=== PATIENT | female | born 1975 | race Caucasian/White ===

== ENCOUNTER 2016-11-10 11:19 | Inpatient (IN) | payer SELFPAY ==
[~2016-11-10] VITALS: Ht 157.5 cm; Wt 61.7 kg
[2016-11-10 11:23] VITALS: BP 101/58; PULSE 96; RESP 15; TEMP 98.2; O2SAT 98
--- NOTE | 2016-11-10 11:41 | PD ---
Physical Exam Time Seen by Provider: 11:38 Narrative 41 y/o female female here for evaluation of an area of redness that has been progressing for 3 weeks on the R buttocks. She says that she received a IM phenergan/lidocaine injection in her R buttocks and the redness in the area has progressed since then. She also c/o L hand redness/pain for 2 days, she believes that maybe a spider bit her. She reports a temperature of 103 last night. Vital signs reviewed. Seen at triage desk. Awaiting bed placement. Data Data Last Documented VS Vital Signs Date Time Temp Pulse Resp B/P Pulse Ox O2 Delivery O2 Flow Rate FiO2 11/10/16 11:23 98.2 96 15 101/58 98 MDM Medical Record Reviewed: Yes Supervised Visit with LONI: Wilfrido Ho Nov 10, 2016 11:41
[2016-11-10 12:00] VITALS: PULSE 74; PULSE 78; RESP 15; TEMP 98.2; TEMP 98.7; O2SAT 100; O2SAT 99
[2016-11-10] MEDS ORDERED: LIDOCAINE HCL 1% 30 ML VIAL INFIL ONE (12:00)
[2016-11-10] MEDS ORDERED: VANCOMYCIN INJ 1,000 MG in SODIUM CHLOR 0.9% 250 ML INJ 250 ML IV ONE (12:00)
[2016-11-10] MEDS ORDERED: SODIUM CHLOR 0.9% 1000 ML INJ 1,000 ML IV ONE (12:15)
--- NOTE | 2016-11-10 12:31 | RADRPT ---
EXAM DATE/TIME: 11/10/2016 12:13 [place] COMPARISON: No previous studies available for comparison. INDICATIONS : Left hand pain and swelling, no injury. MEDICAL HISTORY : None. SURGICAL HISTORY : None. ENCOUNTER: Initial ACUITY: 1 week PAIN SCORE: 5/10 LOCATION: Left entire hand FINDINGS: Three view examination of the left hand demonstrates no dislocation, or fracture. Minimal soft tiss ue swelling is evident. The carpal bones appear intact. The interphalangeal and metacarpophalangeal joints are intact. Bony mineralization is normal. CONCLUSION: Soft tissue swelling, negative for fracture. Rustma Ballard MD FACR on November 10, 2016 at 12:20 Board Certified Radiologist. This report was verified electronically.
[2016-11-10 12:33] LABS: AUTOMATED NEUTROPHIL # 11.7 TH/MM3 (1.8-7.7); BASOPHIL # 0.2 TH/MM3 (0-0.2); BASOPHIL % 0.9 % (0.0-2.0); EOSINOPHIL # 0.7 TH/MM3 (0-0.4); HEMATOCRIT 37.6 % (35.0-46.0); HEMO FLAGS DIFF FINAL; LYMPH % 21.1 % (9.0-44.0); LYMPHOCYTE # 3.7 TH/MM3 (1.0-4.8); MEAN CELL VOLUME 92.9 FL (80.0-100.0); MEAN CORPUSCULAR HEMOGLOBIN 30.2 PG (27.0-34.0); MEAN CORPUSCULAR HGB CONC 32.5 % (32.0-36.0); MONO % 7.7 % (0.0-8.0); NEUT % 66.3 % (16.0-70.0); PLATELET COUNT 370 TH/MM3 (150-450); RED BLOOD COUNT 4.04 MIL/MM3 (4.00-5.30); RED CELL DISTRIBUTION WIDTH 13.6 % (11.6-17.2); WHITE BLOOD COUNT 17.6 TH/MM3 (4.0-11.0)
--- NOTE | 2016-11-10 12:37 | PD ---
HPI Chief Complaint: Skin Problem Time Seen by Provider: 11:47 Travel History International Travel<30 days: No Contact w/Intl Traveler<30days: No Traveled to known affect area: No History of Present Illness HPI 41-year-old female came to the emergency room with history of right buttock abscess that as per the patient has been going on for past 3 weeks and left hand abscess that she noticed since yesterday. She is an IV drug abuser and says that she last shot IV oxycodone was a month ago. She says that another physician had given a shot of lidocaine and Phenergan and to her right buttock and since then she has had this swelling and pain which is progressively worsening. She appeared to be in significant distress and very anxious. Her significant other is here with her as well. Patient was afebrile in the triage. [facility] Past Medical History Narrative Medical List of her past medical, surgical, social and family history was reviewed from the nursing note. Social History Tobacco Use: Yes Allergies-Medications (Allergen,Severity, Reaction): Coded Allergies: Toradol (Verified Allergy, Unknown, 11/10/16) Comments List of her allergies reviewed from the nursing note. Reported Meds & Prescriptions Reported Meds & Active Scripts Active Narrative Medication Awaiting for the nurse to do the medical reconciliation. Review of Systems Except as stated in HPI: all other systems reviewed are Neg Physical Exam Narrative GENERAL: Awake, alert, anxious, significant distress SKIN: Focused skin assessment warm/dry. Right buttock has a significant induration measuring about 5 x 7 cm with a central fluctuance of 3 x 3 cm. The left hand at the fourth MCP joint has a tender fluctuant swelling with the ring finger swollen and decreased range of motion. The palmar surface of both the hands have peeling dermis. HEAD: Atraumatic. Normocephalic. EYES: Pupils equal and round. No scleral icterus. No injection or drainage. ENT: No nasal bleeding or discharge. Mucous membranes pink and moist. NECK: Trachea midline. No JVD. CARDIOVASCULAR: Regular rate and rhythm. No murmur appreciated. RESPIRATORY: No accessory muscle use. Clear to auscultation. Breath sounds equal bilaterally. GASTROINTESTINAL: Abdomen soft, non-tender, nondistended. Hepatic and splenic margins not palpable. MUSCULOSKELETAL: No obvious deformities. No clubbing. No cyanosis. No edema. NEUROLOGICAL: Awake and alert. No obvious cranial nerve deficits. Motor grossly within normal limits. Normal speech. PSYCHIATRIC: Appropriate mood and affect; insight and judgment normal. Data Data Last Documented VS Vital Signs Date Time Temp Pulse Resp B/P Pulse Ox O2 Delivery O2 Flow Rate FiO2 11/10/16 12:00 98.7 78 15 100 Room Air 11/10/16 11:23 101/58 Orders Complete Blood Count With Diff (11/10/16 11:47) Comprehensive Metabolic Panel (11/10/16 11:47) Lactic Acid Sepsis Protocol (11/10/16 11:47) Urinalysis - C+S If Indicated (11/10/16 11:47) Blood Culture (11/10/16 11:47) Wound Culture And Gram Stain (11/10/16 11:47) Blood Glucose (11/10/16 11:47) Ecg Monitoring (11/10/16 11:47) Iv Access Insert/Monitor (11/10/16 11:47) Oximetry (11/10/16 11:47) Oxygen Administration (11/10/16 11:47) Hand, Complete (Byo0obn) (11/10/16 ) Vancomycin Inj (Vancomycin Inj) (11/10/16 12:00) Lidocaine 1% Inj (Xylocaine 1% Inj) (11/10/16 12:00) Sodium Chlor 0.9% 1000 Ml Inj (Ns 1000 M (11/10/16 12:15) Potassium Chloride Eff (K-Lyte Cl Eff) (11/10/16 12:45) Morphine Inj (Morphine Inj) (11/10/16 13:14) Urine Culture (11/10/16 12:10) Morphine Inj (Morphine Inj) (11/10/16 14:00) Admit Order (Ed Use Only) (11/10/16 14:58) Labs Laboratory Tests Test 11/10/16 11/10/16 11:55 12:10 White Blood Count 17.6 TH/MM3 Red Blood Count 4.04 MIL/MM3 Hemoglobin 12.2 GM/DL Hematocrit 37.6 % Mean Corpuscular Volume 92.9 FL Mean Corpuscular Hemoglobin 30.2 PG Mean Corpuscular Hemoglobin 32.5 % Concent Red Cell Distribution Width 13.6 % Platelet Count 370 TH/MM3 Mean Platelet Volume 9.2 FL Neutrophils (%) (Auto) 66.3 % Lymphocytes (%) (Auto) 21.1 % Monocytes (%) (Auto) 7.7 % Eosinophils (%) (Auto) 4.0 % Basophils (%) (Auto) 0.9 % Neutrophils # (Auto) 11.7 TH/MM3 Lymphocytes # (Auto) 3.7 TH/MM3 Monocytes # (Auto) 1.4 TH/MM3 Eosinophils # (Auto) 0.7 TH/MM3 Basophils # (Auto) 0.2 TH/MM3 CBC Comment DIFF FINAL Differential Comment Sodium Level 137 MEQ/L Potassium Level 3.3 MEQ/L Chloride Level 104 MEQ/L Carbon Dioxide Level 24.9 MEQ/L Anion Gap 8 MEQ/L Blood Urea Nitrogen 6 MG/DL Creatinine 0.68 MG/DL Estimat Glomerular Filtration 94 ML/MIN Rate Random Glucose 81 MG/DL Lactic Acid Level 1.3 mmol/L Calcium Level 8.4 MG/DL Total Bilirubin 0.2 MG/DL Aspartate Amino Transf 14 U/L (AST/SGOT) Alanine Aminotransferase 23 U/L (ALT/SGPT) Alkaline Phosphatase 77 U/L Total Protein 7.6 GM/DL Albumin 2.9 GM/DL Urine Color LIGHT-YELLOW Urine Turbidity HAZY Urine pH 6.0 Urine Specific [place] 1.005 Urine Protein NEG mg/dL Urine Glucose (UA) NEG mg/dL Urine Ketones NEG mg/dL Urine Occult Blood MOD Urine Nitrite NEG Urine Bilirubin NEG Urine Urobilinogen LESS THAN 2.0 MG/DL Urine Leukocyte Esterase NEG Urine RBC 1 /hpf Urine WBC 2 /hpf Urine Squamous Epithelial 1 /hpf Cells Urine Amorphous Sediment RARE Urine Bacteria FEW /hpf Microscopic Urinalysis Comment CATH-CULTURE IND [facility] Medical Decision Making Medical Screen Exam Complete: Yes Emergency Medical Condition: Yes Medical Record Reviewed: Yes Differential Diagnosis Disseminated staph infection, multiple abscesses, MRSA infection Narrative Course 12:37 PM x-ray of the hand appears to be within normal limit. Awaiting for the blood test results to come back. Patient has been started on IV fluid bolus and IV vancomycin. The abscess will be drained. 2:54 PM patient has significant leukocytosis and received her 1 g of vancomycin. Please refer to my procedure note regarding the right buttock abscess drainage. My PA drained the left hand abscess. Please refer to his note regarding that procedure. I discussed the hand infection with hand surgeon Dr. Bowling and he will follow up with the patient. He recommended to do at least 2 cm incision and open the abscess and pack it. Patient has been admitted to the hospitalist. She was given 4 mg of IV morphine for pain control during the procedure. Procedures Procedure Narrative Right buttock abscess incision and drainage: The area was cleaned with Betadine and gauze 3. 5 mL of 1% lidocaine was infiltrated into the area for local anesthesia. Cruciate incision was made over the maximum point of fluctuance. Immediately purulent material started to drain out. Excessive copious amount of purulent material came out close to few 100 ML's. Patient continued to experience pain throughout the procedure and was given IV morphine for additional pain relief. However she maintained hemodynamically stable. The cavity was packed with 1 inch iodoform gauze strip. Dry dressing was applied over it. EKG Prior to Arrival: No Physician Communication Physician Communication Dr. Bowling Diagnosis Primary Impression: disseminated staphylococcal infection Additional Impressions: Abscess of multiple sites IV drug abuse Admitting Information Admitting Physician Requests: Admit Scripts Clindamycin 300 Mg [id number] Mg PO TID #30 CAP Ref 0 Prov:Anurag Brock MD 11/12/16 Sulfamethoxazole-Trimethoprim (Bactrim DS)800-160 Mg Tab1 Tab PO BID #20 TAB Ref 0 Prov:Anurag Brock MD 11/12/16 Quentin Brown MD Nov 10, 2016 12:37
[2016-11-10 12:38] LABS: ALT (GPT) 23 U/L (10-53); ANION GAP 8 MEQ/L (5-15); AST (GOT) 14 U/L (15-37); BICARBONATE 24.9 MEQ/L (21.0-32.0); BLOOD UREA NITROGEN 6 MG/DL (7-18); CHLORIDE 104 MEQ/L (98-107); GLOMERULAR FILTRATION RATE 94 ML/MIN (>89); POTASSIUM 3.3 MEQ/L (3.5-5.1); SODIUM (NA) 137 MEQ/L (136-145)
[2016-11-10 12:40] LABS: ALKALINE PHOSPHATASE 77 U/L (45-117); TOTAL BILIRUBIN ADULT 0.2 MG/DL (0.2-1.0)
[2016-11-10] MEDS ORDERED: POTASSIUM CHLORIDE 25 MEQ EFFERVESCENT TAB PO ONE (12:45)
[2016-11-10] MEDS ORDERED: MORPHINE SULFATE 8 MG/ML INJ ONE (13:14)
[2016-11-10 13:47] LABS: BACTERIA, URINE FEW /hpf; BLOOD, URINE MOD (NEG); COMMENT (UR) CATH-CULTURE IND; CULTURE IF INDICATED CATH CULTURE IND; GLUCOSE,URINE NEG (NEG); KETONE, URINE NEG (NEG); NITRITE,URINE NEG (NEG); SQUAMOUS EPITHELIAL CELL URINE 1 /hpf (0-5); URINE COLOR LIGHT-YELLOW (YELLW/STRAW)
[2016-11-10] MEDS ORDERED: MORPHINE SULFATE 4 MG/ML INJ IV PUSH ONE (14:00)
[2016-11-10] MEDS ORDERED: MAGNESIUM HYDROXIDE SUSP 30 ML CUP PO PRN (15:15)
[2016-11-10] MEDS ORDERED: NALOXONE HCL 0.4 MG/ML AMP IV PRN (15:15)
[2016-11-10] MEDS ORDERED: ONDANSETRON HCL 4 MG/2 ML VIAL IVP PRN (15:15)
[2016-11-10] MEDS ORDERED: RESP: ALBUTEROL 2.5 MG/IPRATROPIUM 0.5 MG NEB (PRN) NEB (15:15)
[2016-11-10] MEDS ORDERED: ACETAMINOPHEN 325 MG TAB PO PRN ×2 (15:15)
[2016-11-10] MEDS ORDERED: SODIUM CHLORIDE 0.9% FLUSH 10 ML FLUSH IV FLUSH PRN (15:15)
[2016-11-10] MEDS ORDERED: Vancomycin Consult Pharmacy 1 EA OTHER SCH (16:15)
--- NOTE | 2016-11-10 16:18 | HHI.HP ---
[facility] Service [place] Hospitalists Primary Care Physician Non-Staff Admission Diagnosis disseminated staphylococcal infection, multiple abscesses Diagnoses: (1) Sepsis affecting skin (2) Abscess of multiple sites (3) IV drug abuse Chief Complaint: Multiple painful abscesses Travel History International Travel<30 Days: No Contact w/Intl Traveler <30 Da: No Traveled to Known Affected Are: No Sepsis Criteria SIRS Criteria (2 or more): Heart rate over 90, WBC > 70107, < 4000 or > 10% bands Sepsis Criteria (SIRS+source): Infect source susp/known History of Present Illness 41-year-old IV drug use female presents to the ED for evaluation of multiple painful abscesses, to her right buttock 3 weeks duration and left hand 1 day duration with some drainage associated with febrile episode 1 day. Patient stated her temperature was 103 yesterday. She reported history of IV drug use and mostly oxycodone she use but a month ago. She stated 3 weeks ago she was given a shot of lidocaine and Phenergan to her right buttock secondary to migraine headache. In this evolved to an abscess. Abnormal labs include WBC 17. She denies any chest pain but only complain of severe right buttock pain rated 10/10 in intensity. Review of Systems Except as stated in HPI: all other systems reviewed are Neg Past Family Social History Past Medical History Chronic back pain Anxiety IV drug use Tobacco abuse Past Surgical History 3 Appendectomy Cholecystectomy Reported Medications See EMR Allergies: Coded Allergies: Toradol (Verified Allergy, Unknown, 11/10/16) Family History Mother has a history of hypertension Social History Patient smokes one pack per day, reports marijuana use. Physical Exam Vital Signs Vital Signs Date Time Temp Pulse Resp B/P Pulse Ox O2 Delivery O2 Flow Rate FiO2 11/10/16 11:23 98.2 96 15 101/58 98 Physical Exam GENERAL: This is a well-nourished, well-developed patient, in no apparent distress. SKIN: No rashes, ecchymoses or lesions. Cool and dry. Dressing over right buttock abscess as well as left hand HEAD: Atraumatic. Normocephalic. No temporal or scalp tenderness. EYES: Pupils equal round and reactive. Extraocular motions intact. No scleral icterus. No injection or drainage. ENT: Nose without bleeding, purulent drainage or septal hematoma. Throat without erythema, tonsillar hypertrophy or exudate. Uvula midline. Airway patent. NECK: Trachea midline. No JVD or lymphadenopathy. Supple, nontender, no meningeal signs. CARDIOVASCULAR: Regular rate and rhythm without murmurs, gallops, or rubs. RESPIRATORY: Clear to auscultation. Breath sounds equal bilaterally. No wheezes , rales, or rhonchi. GASTROINTESTINAL: Abdomen soft, non-tender, nondistended. No hepato-splenomegaly , or palpable masses. No guarding. MUSCULOSKELETAL: Extremities without clubbing, cyanosis, or edema. No joint tenderness, effusion, or edema noted. No calf tenderness. Negative Homans sign bilaterally. NEUROLOGICAL: Awake and alert. Cranial nerves II through XII intact. Motor and sensory grossly within normal limits. Five out of 5 muscle strength in all muscle groups. Normal speech. Laboratory Laboratory Tests Test 11/10/16 11/10/16 11:55 12:10 White Blood Count 17.6 Red Blood Count 4.04 Hemoglobin 12.2 Hematocrit 37.6 Mean Corpuscular Volume 92.9 Mean Corpuscular Hemoglobin 30.2 Mean Corpuscular Hemoglobin 32.5 Concent Red Cell Distribution Width 13.6 Platelet Count 370 Mean Platelet Volume 9.2 Neutrophils (%) (Auto) 66.3 Lymphocytes (%) (Auto) 21.1 Monocytes (%) (Auto) 7.7 Eosinophils (%) (Auto) 4.0 Basophils (%) (Auto) 0.9 Neutrophils # (Auto) 11.7 Lymphocytes # (Auto) 3.7 Monocytes # (Auto) 1.4 Eosinophils # (Auto) 0.7 Basophils # (Auto) 0.2 CBC Comment DIFF FINAL Differential Comment Sodium Level 137 Potassium Level 3.3 Chloride Level 104 Carbon Dioxide Level 24.9 Anion Gap 8 Blood Urea Nitrogen 6 Creatinine 0.68 Estimat Glomerular Filtration 94 Rate Random Glucose 81 Lactic Acid Level 1.3 Calcium Level 8.4 Total Bilirubin 0.2 Aspartate Amino Transf 14 (AST/SGOT) Alanine Aminotransferase 23 (ALT/SGPT) Alkaline Phosphatase 77 Total Protein 7.6 Albumin 2.9 Urine Color LIGHT-YELLOW Urine Turbidity HAZY Urine pH 6.0 Urine Specific [place] 1.005 Urine Protein NEG Urine Glucose (UA) NEG Urine Ketones NEG Urine Occult Blood MOD Urine Nitrite NEG Urine Bilirubin NEG Urine Urobilinogen LESS THAN 2.0 Urine Leukocyte Esterase NEG Urine RBC 1 Urine WBC 2 Urine Squamous Epithelial 1 Cells Urine Amorphous Sediment RARE Urine Bacteria FEW Microscopic Urinalysis Comment CATH-CULTURE IND Date/Time Procedure Status Source Growth 11/10/16 12:15 Aerobic Blood Culture Received Blood Peripheral Pending 11/10/16 12:15 Anaerobic Blood Culture Received Blood Peripheral Pending 11/10/16 12:10 Urine Culture Received Urine Catheterized Urine Pending 11/10/16 12:05 Gram Stain Received Wound Buttock Pending 11/10/16 12:05 Wound Culture Received Wound Buttock Pending Result Diagram: 11/10/16 1155 11/10/16 1155 Imaging Last Impressions Hand X-Ray 11/10/16 0000 Signed Impressions: Service Date/Time: Thursday, November 10, 2016 12:13 - CONCLUSION: Soft tissue swelling, negative for fracture. Rustam Ballard MD FACR Assessment and Plan Problem List: (1) Sepsis affecting skin ICD Code: L02.91 Status: Acute (2) Abscess of multiple sites ICD Code: L02.91 Status: Acute (3) IV drug abuse ICD Code: F19.10 Status: Acute Assessment and Plan 41-year-old female with Sepsis affecting skin: Infect source (skin abscesses );Heart rate over 90, WBC > 91805, < 4000 or > 10% bands; normal lactic acid. Status post vancomycin IV 1, continue with vancomycin and clindamycin pending culture report Abscess of multiple sites Disseminating staph Status post IV vancomycin in ED, continue with antibiotics and add clindamycin pending culture report Pain management accordingly with IV parenteral morphine for breakthrough, by mouth Lortab Hand abscess Hand x-ray noted and review by me with finding of Soft tissue swelling, negative for fracture Treatment with above antibiotics Hand surgeon consultation pending for evaluation for possible incision and drainage Hypokalemia: Replace electrolyte and monitor IV drug use: Counseled to quit, check 2-D echo Tobacco abuse Tobacco counseling provided; start nicotine patch DVT prophylaxis: Bilateral SCDs Code Status Full code Discussed Condition With Patient, ED physician Physician Certification 2 Midnight Certification Type: Admission for Inpatient Services Order for Inpatient Services The services are ordered in accordance with Medicare regulations or non- Medicare payer requirements, as applicable. In the case of services not specified as inpatient-only, they are appropriately provided as inpatient services in accordance with the 2-midnight benchmark. Estimated LOS (days): 2 days is the estimated time the patient will need to remain in the hospital, assuming treatment plan goals are met and no additional complications. Post-Hospital Plan: Not yet determined Anurag Brock MD Nov 10, 2016 16:18
[2016-11-10 17:44] VITALS: TEMP 98.8
[2016-11-10 18:00] VITALS: BP 109/53; PULSE 79; RESP 18; TEMP 97.4; O2SAT 99
[2016-11-10] MEDS: ACETAMINOPHEN/HYDROcodone 325 MG/5 MG TAB PO PRN ×2 (18:04→22:27)
[2016-11-10 20:00] VITALS: BP 103/61; PULSE 70; RESP 18; TEMP 98.1; O2SAT 98
[2016-11-10] MEDS ORDERED: TEMAZEPAM 15 MG CAP PO PRN (21:00)
[2016-11-10] MEDS: LACTOBACILLUS ACIDOPHILUS TAB PO SCH (21:14)
[2016-11-10] MEDS: SODIUM CHLORIDE 0.9% FLUSH 10 ML FLUSH IV FLUSH SCH (21:14)
[2016-11-10] MEDS: VANCOMYCIN INJ 1,250 MG in SODIUM CHLOR 0.9% 250 ML INJ 250 ML IV SCH (21:15)
[2016-11-10] MEDS: MORPHINE SULFATE 4 MG/ML INJ IV PUSH PRN (21:16)
[2016-11-10] MEDS: CLINDAMYCIN INJ 300 MG in SODIUM CHLORIDE 0.9% INJ 100 ML IV SCH (22:43)
[2016-11-10] MEDS: REMOVE OLD PATCH T-DERMAL SCH (22:43)
[2016-11-11] VITALS (7 sets, daily range): BP systolic 92–116; BP diastolic 50–61; PULSE 69–86; RESP 18–20; TEMP 97.8–98.4; O2SAT 96–98
[2016-11-11] MEDS ORDERED: HYDR-3535 PO (01:00)
[2016-11-11] MEDS ORDERED: NEUR800T PO (01:00)
[2016-11-11] MEDS ORDERED: XANA1TAB2 PO (01:00)
[2016-11-11] MEDS ORDERED: MORPHINE SULFATE 4 MG/ML INJ IV PUSH ONE (01:15)
[2016-11-11] MEDS: ACETAMINOPHEN/HYDROcodone 325 MG/5 MG TAB PO PRN ×4 (02:39→20:01)
[2016-11-11] MEDS: MORPHINE SULFATE 4 MG/ML INJ IV PUSH PRN ×3 (05:45→17:22)
[2016-11-11] MEDS: CLINDAMYCIN INJ 300 MG in SODIUM CHLORIDE 0.9% INJ 100 ML IV SCH ×3 (05:47→21:21)
[2016-11-11 08:11] LABS: AUTOMATED NEUTROPHIL # 5.3 TH/MM3 (1.8-7.7); BASOPHIL # 0.1 TH/MM3 (0-0.2); BASOPHIL % 1.1 % (0.0-2.0); EOSINOPHIL % 9.9 % (0.0-4.0); HEMATOCRIT 32.9 % (35.0-46.0); LYMPH % 26.1 % (9.0-44.0); LYMPHOCYTE # 2.5 TH/MM3 (1.0-4.8); MEAN CELL VOLUME 90.9 FL (80.0-100.0); MEAN CORPUSCULAR HEMOGLOBIN 31.4 PG (27.0-34.0); MEAN CORPUSCULAR HGB CONC 34.5 % (32.0-36.0); MONO % 8.6 % (0.0-8.0); NEUT % 54.3 % (16.0-70.0); PLATELET COUNT 326 TH/MM3 (150-450); RED BLOOD COUNT 3.61 MIL/MM3 (4.00-5.30); RED CELL DISTRIBUTION WIDTH 13.4 % (11.6-17.2); WHITE BLOOD COUNT 9.7 TH/MM3 (4.0-11.0)
[2016-11-11 08:13] LABS: ALT (GPT) 20 U/L (10-53); ANION GAP 5 MEQ/L (5-15); AST (GOT) 15 U/L (15-37); BICARBONATE 25.6 MEQ/L (21.0-32.0); CHLORIDE 110 MEQ/L (98-107); GLOMERULAR FILTRATION RATE 160 ML/MIN (>89); SODIUM (NA) 141 MEQ/L (136-145)
[2016-11-11 08:16] LABS: ALKALINE PHOSPHATASE 63 U/L (45-117); BLOOD UREA NITROGEN 9 MG/DL (7-18); TOTAL BILIRUBIN ADULT 0.1 MG/DL (0.2-1.0)
[2016-11-11 08:20] LABS: HEMO FLAGS AUTO DIFF
[2016-11-11] MEDS: SODIUM CHLORIDE 0.9% FLUSH 10 ML FLUSH IV FLUSH SCH ×2 (09:00→21:21)
[2016-11-11] MEDS ORDERED: VANCOMYCIN INJ 1,250 MG in SODIUM CHLOR 0.9% 250 ML INJ 250 ML IV SCH (09:00)
[2016-11-11] MEDS: NICOTINE 21 MG/24 HR PATCH T-DERMAL SCH ×2 (09:00→12:39)
[2016-11-11 09:20] LABS: BANDS 7 % (0-6); CORRECTED NUCLEATED RBC 1 /100 WBC (0-0); EOSINOPHILS 10 % (0-4); METAMYELOCYTES 2 % (0-1); NEUTROPHIL # MANUAL DIFF 5.7 TH/MM3 (1.8-7.7); POLYS (SEG NEUTROPHILS) 50 % (16-70); WBC DIFF SAMPLE 100
[2016-11-11 09:21] LABS: PLATELET ESTIMATE SMEAR NORMAL (NORMAL); PLATELET MORPHOLOGY NORMAL (NORMAL); SCAN/DIFF FINAL DIFF MANUAL
[2016-11-11] MEDS: LACTOBACILLUS ACIDOPHILUS TAB PO SCH ×2 (09:32→21:22)
[2016-11-11] MEDS: VANCOMYCIN INJ 1,250 MG in SODIUM CHLOR 0.9% 250 ML INJ 250 ML IV SCH ×2 (09:32→21:21)
--- NOTE | 2016-11-11 12:28 | HHI.PR ---
Subjective Remarks F-U sepsis/disseminated staph infection 11/11/16-Patient seen and examined; initially she wanted to leave AMA however decided to stay. Afebrile Objective Vitals Vital Signs Date Time Temp Pulse Resp B/P Pulse Ox O2 Delivery O2 Flow Rate FiO2 11/11/16 08:00 18 11/11/16 04:00 98.2 71 20 96/54 96 11/11/16 00:00 98.1 73 20 93/50 96 11/10/16 20:00 98.1 70 18 103/61 98 11/10/16 18:00 97.4 79 18 109/53 99 11/10/16 17:44 98.8 75 16 100 Result Diagram: 11/11/16 0720 11/11/16 0720 Imaging Last Impressions Hand X-Ray 11/10/16 0000 Signed Impressions: Service Date/Time: Thursday, November 10, 2016 12:13 - CONCLUSION: Soft tissue swelling, negative for fracture. Rustam Ballard MD FACR Objective Remarks GENERAL: NAD SKIN: Warm and dry. Dressing over right buttock abscess as well as left hand HEAD: Normocephalic. EYES: No scleral icterus. No injection or drainage. NECK: Supple, trachea midline. No JVD or lymphadenopathy. CARDIOVASCULAR: Regular rate and rhythm without murmurs, gallops, or rubs. RESPIRATORY: Breath sounds equal bilaterally. No accessory muscle use. GASTROINTESTINAL: Abdomen soft, non-tender, nondistended. MUSCULOSKELETAL: No cyanosis, or edema. BACK: Nontender without obvious deformity. No CVA tenderness. A/P Problem List: (1) Sepsis affecting skin ICD Code: L02.91 Status: Acute (2) Abscess of multiple sites ICD Code: L02.91 Status: Acute (3) IV drug abuse ICD Code: F19.10 Status: Acute Assessment and Plan 41-year-old female with Sepsis affecting skin: Infect source (skin abscesses );Heart rate over 90, WBC > 83248, < 4000 or > 10% bands; normal lactic acid. Status post vancomycin IV 1, continue with vancomycin and clindamycin pending culture report Abscess of multiple sites Disseminating staph Status post IV vancomycin in ED, continue with antibiotics and clindamycin pending culture report Pain management accordingly with IV parenteral morphine for breakthrough, by mouth Lortab Hand abscess Hand x-ray with finding of Soft tissue swelling, negative for fracture Treatment with above antibiotics Hand surgeon consultation pending for evaluation for possible incision and drainage Hypokalemia: Resolved IV drug use: Counseled to quit, 2-D echo pending Tobacco abuse Tobacco counseling provided; tx nicotine patch DVT prophylaxis: Bilateral SCDs Anurag Brock MD Nov 11, 2016 12:28
[2016-11-11] MEDS: POVIDONE IODINE 10% SOLN 480 ML BTL TOPICAL SCH (17:00)
[2016-11-11] MEDS: POVIDONE IODINE 10% OINT 30 GM TUBE TOPICAL SCH (17:24)
--- NOTE | 2016-11-11 18:41 | MB ---
cc: CLOVIS MARTÍNEZ MD DATE OF CONSULTATION 11/11/[address] Anurag Brock REASON FOR CONSULTATION Abscess of left hand. HISTORY OF PRESENT ILLNESS The patient is a 41-year-old female who was admitted to the emergency room last night. The patient apparently is an IV drug abuser and has had multiple abscesses. The patient also developed superficial abscess on her left hand. This was drained in the emergency room and packed. Consultation is requested for evaluation and treatment of the left hand. REVIEW OF SYSTEMS: Negative except as related to the present problem. PAST MEDICAL HISTORY 1. Chronic back pain, 2. Anxiety 3. IV drug abuse 4. Tobacco abuse. PAST SURGICAL HISTORY 1. x3 2. Appendectomy, 3. Cholecystectomy. MEDICATIONS On the chart. ALLERGIES TORADOL FAMILY HISTORY Significant for hypertension. SOCIAL HISTORY The patient smokes a pack cigarettes per day. Reports marijuana use. PHYSICAL EXAMINATION GENERAL: The patient is lying comfortably in bed. VITAL SIGNS: Temperature is 98.2, pulse 71, respirations 20, blood pressure 96/54, pulse oximetry 96. HEENT: The patient's extraocular muscles are intact. The pupils are equal, round and reactive to light. Mouth is clear. NECK: Supple without masses. LUNGS: Clear. HEART: Regular rate and rhythm. EXTREMITIES: Examination of left upper extremity reveals a dorsal abscess. The patient has swelling over the index finger MP joints, but she has adequate range of motion. There is no significant swelling. LABORATORY DATA White count on admission was 17.6 and this morning was 9.7. The culture grew out rare gram-positive cocci in pairs consistent with staph aureus. IMPRESSION The patient appears to have an adequate drained abscess of left hand. PLAN The patient will continue on IV antibiotics. She will be placed on wound care. She can follow up in my office as an outpatient. Clovis Martínez MD [place]/ /4:20 PM /6:34 PM
[2016-11-11] MEDS: REMOVE OLD PATCH T-DERMAL SCH (21:00)
[2016-11-12] VITALS: BP 94/55; PULSE 70; RESP 18; TEMP 97.7; O2SAT 98
[2016-11-12] MEDS: ACETAMINOPHEN/HYDROcodone 325 MG/5 MG TAB PO PRN ×2 (02:32→08:43)
[2016-11-12 03:30] VITALS: BP 98/58
[2016-11-12] MEDS: MORPHINE SULFATE 4 MG/ML INJ IV PUSH PRN (03:38)
[2016-11-12 04:00] VITALS: PULSE 61; RESP 18; TEMP 97.3; O2SAT 97
[2016-11-12] MEDS: CLINDAMYCIN INJ 300 MG in SODIUM CHLORIDE 0.9% INJ 100 ML IV SCH (04:59)
[2016-11-12 08:00] VITALS: BP 97/55; PULSE 65; RESP 18; TEMP 97.7; O2SAT 98
[2016-11-12] MEDS: LACTOBACILLUS ACIDOPHILUS TAB PO SCH (08:42)
[2016-11-12] MEDS: NICOTINE 21 MG/24 HR PATCH T-DERMAL SCH (08:42)
[2016-11-12] MEDS: SODIUM CHLORIDE 0.9% FLUSH 10 ML FLUSH IV FLUSH SCH (08:43)
[2016-11-12] MEDS: POVIDONE IODINE 10% OINT 30 GM TUBE TOPICAL SCH (08:43)
[2016-11-12] MEDS: POVIDONE IODINE 10% SOLN 480 ML BTL TOPICAL SCH (08:43)
[2016-11-12] MEDS ORDERED: PHARMACY ORDERED LAB ONE (08:45)
[2016-11-12] MEDS: VANCOMYCIN INJ 1,250 MG in SODIUM CHLOR 0.9% 250 ML INJ 250 ML IV SCH (09:00)
[2016-11-12] MEDS ORDERED: BACT800T5 PO (09:56)
--- NOTE | 2016-11-12 10:00 | HHI.PR ---
Subjective Remarks F-U sepsis/disseminated staph infection 11/11/16-Patient seen and examined; initially she wanted to leave AMA however decided to stay. Afebrile 11/12/16-patient seen and examined, buttock wound culture positive for staph aureus, currently afebrile denies any shortness of breath. Patient was seen yesterday by hand surgeon. Patient also reported that she has a sister who was a nurse who can do her wound dressing change. Objective Vitals Vital Signs Date Time Temp Pulse Resp B/P Pulse Ox O2 Delivery O2 Flow Rate FiO2 11/12/16 08:00 97.7 65 18 97/55 98 11/12/16 04:00 97.3 61 18 97 11/12/16 03:30 98/58 11/12/16 00:00 97.7 70 18 94/55 98 11/11/16 20:02 92/60 11/11/16 20:00 98.4 86 20 116/61 96 11/11/16 16:00 97.8 69 18 95/50 98 11/11/16 12:00 18 I/O 11/11/16 11/11/16 11/11/16 11/12/16 11/12/16 11/12/16 06:59 14:59 22:59 06:59 14:59 22:59 Intake Total 720 ml 0 ml 450 ml Output Total 0 ml Balance 720 ml 0 ml 450 ml Intake Oral 720 ml 0 ml 0 ml IV Total 450 ml Output Urine Total 0 ml # Voids 1 1 0 # Bowel Movements 0 0 0 Result Diagram: 11/11/16 0720 11/11/16 0720 Imaging Last Impressions Hand X-Ray 11/10/16 0000 Signed Impressions: Service Date/Time: Thursday, November 10, 2016 12:13 - CONCLUSION: Soft tissue swelling, negative for fracture. Rustam Ballard MD FACR Objective Remarks GENERAL: NAD SKIN: Warm and dry. Dressing over right buttock abscess as well as left hand HEAD: Normocephalic. EYES: No scleral icterus. No injection or drainage. NECK: Supple, trachea midline. No JVD or lymphadenopathy. CARDIOVASCULAR: Regular rate and rhythm without murmurs, gallops, or rubs. RESPIRATORY: Breath sounds equal bilaterally. No accessory muscle use. GASTROINTESTINAL: Abdomen soft, non-tender, nondistended. MUSCULOSKELETAL: No cyanosis, or edema. BACK: Nontender without obvious deformity. No CVA tenderness. A/P Problem List: (1) Sepsis affecting skin ICD Code: L02.91 Status: Acute (2) Abscess of multiple sites ICD Code: L02.91 Status: Acute (3) IV drug abuse ICD Code: F19.10 Status: Acute Assessment and Plan 41-year-old female with Sepsis affecting skin: Resolved. Infect source (skin abscesses );Heart rate over 90, WBC > 07556, < 4000 or > 10% bands; normal lactic acid. Status post vancomycin IV 1, continue with vancomycin and clindamycin pending culture report Abscess of multiple sites Disseminating staph Status post IV vancomycin in ED, continue with antibiotics and clindamycin. Wound culture positive for Staph Aureus sensitive to Bactrim DC as well as clindamycin Pain management accordingly with IV parenteral morphine for breakthrough, by mouth Lortab Hand abscess Hand x-ray with finding of Soft tissue swelling, negative for fracture Treatment with above antibiotics Appreciate input from Hand surgeon consultation and continue with current treatment Hypokalemia: Resolved IV drug use: Counseled to quit, 2-D echo pending Tobacco abuse Tobacco counseling provided; tx nicotine patch DVT prophylaxis: Bilateral SCDs Anurag Brock MD Nov 12, 2016 10:00
--- NOTE | 2016-11-12 10:02 | HHI.DS ---
Discharge Summary Admission Date Nov 10, 2016 at 15:01 Discharge Date: Nov 12, 2016 Admitting Diagnosis disseminated staphylococcal infection, multiple abscesses (1) Sepsis affecting skin ICD Code: L02.91 (2) Abscess of multiple sites ICD Code: L02.91 (3) IV drug abuse ICD Code: F19.10 Procedures None Brief History - From Admission 41-year-old IV drug use female presents to the ED for evaluation of multiple painful abscesses, to her right buttock 3 weeks duration and left hand 1 day duration with some drainage associated with febrile episode 1 day. Patient stated her temperature was 103 yesterday. She reported history of IV drug use and mostly oxycodone she use but a month ago. She stated 3 weeks ago she was given a shot of lidocaine and Phenergan to her right buttock secondary to migraine headache. In this evolved to an abscess. Abnormal labs include WBC 17. She denies any chest pain but only complain of severe right buttock pain rated 10/10 in intensity. CBC/BMP: 11/11/16 0720 11/11/16 0720 Significant Findings Laboratory Tests Test 11/10/16 11/10/16 11/11/16 11:55 12:10 07:20 White Blood Count 17.6 TH/MM3 (4.0-11.0) Neutrophils # (Auto) 11.7 TH/MM3 (1.8-7.7) Monocytes # (Auto) 1.4 TH/MM3 (0-0.9) Eosinophils # (Auto) 0.7 TH/MM3 1.0 TH/MM3 (0-0.4) (0-0.4) Potassium Level 3.3 MEQ/L (3.5-5.1) Blood Urea Nitrogen 6 MG/DL (7-18) Calcium Level 8.4 MG/DL 8.4 MG/DL (8.5-10.1) (8.5-10.1) Aspartate Amino Transf 14 U/L (15-37) (AST/SGOT) Albumin 2.9 GM/DL 2.4 GM/DL (3.4-5.0) (3.4-5.0) Urine Turbidity HAZY (CLEAR) Urine Occult Blood MOD (NEG) Urine Bacteria FEW /hpf (NONE) Red Blood Count 3.61 MIL/MM3 (4.00-5.30) Hemoglobin 11.3 GM/DL (11.6-15.3) Hematocrit 32.9 % (35.0-46.0) Monocytes (%) (Auto) 8.6 % (0.0-8.0) Eosinophils (%) (Auto) 9.9 % (0.0-4.0) Band Neutrophils % 7 % (0-6) Eosinophils % 10 % (0-4) Metamyelocytes 2 % (0-1) Nucleated Red Blood Cells 1 /100 WBC (0-0) Chloride Level 110 MEQ/L (98-107) Creatinine 0.43 MG/DL (0.50-1.00) Total Bilirubin 0.1 MG/DL (0.2-1.0) Imaging Last Impressions Hand X-Ray 11/10/16 0000 Signed Impressions: Service Date/Time: Thursday, November 10, 2016 12:13 - CONCLUSION: Soft tissue swelling, negative for fracture. Rustam Ballard MD FACR PE at Discharge GENERAL: NAD SKIN: Warm and dry. Dressing over right buttock abscess as well as left hand HEAD: Normocephalic. EYES: No scleral icterus. No injection or drainage. NECK: Supple, trachea midline. No JVD or lymphadenopathy. CARDIOVASCULAR: Regular rate and rhythm without murmurs, gallops, or rubs. RESPIRATORY: Breath sounds equal bilaterally. No accessory muscle use. GASTROINTESTINAL: Abdomen soft, non-tender, nondistended. MUSCULOSKELETAL: No cyanosis, or edema. BACK: Nontender without obvious deformity. No CVA tenderness. Hospital Course Patient was started on IV clindamycin and vancomycin secondary to disseminated staph infection. She was given parenteral pain management. Hand surgery was consulted. Prior to discharge, her buttocks wound culture was positive for staph aureus. She'll be switched to by mouth antibiotics. DVT and GI prophylaxis were provided. Prior to discharge, patient's condition improved and vitals remained stable. Pt Condition on Discharge: Stable Discharge Disposition: Discharge Home Discharge Time: <= 30 minutes Discharge Instructions DIET: Follow Instructions for: Heart Healthy Diet Activities you can perform: Regular-No Restrictions Follow up Referrals: PCP Follow-up - 1 Week New Medications: Clindamycin (Clindamycin) 300 Mg Cap 300 MG PO TID Infection #30 Ref 0 CAP Sulfamethoxazole-Trimethoprim (Bactrim DS) 800-160 Mg Tab 1 TAB PO BID Infection #20 Ref 0 TAB Continued Medications: Alprazolam (Xanax) 1 Mg Tab 1 MG PO Q6H PRN ANXIETY Ref 0 TAB Gabapentin (Neurontin) 800 Mg Tab 800 MG PO TID #90 Ref 0 TAB Hydrocodone-Acetaminophen (Lortab) 10-325 Mg Tab 1 TAB PO Q4H PRN PAIN Ref 0 TAB Anurag Brock MD Nov 12, 2016 10:02
[2016-11-12] MEDS ORDERED: CLIN1CAP6 PO (10:03)
[2016-11-12 11:30] VITALS: BP 105/56; PULSE 83; RESP 18; TEMP 98; O2SAT 96
[2016-11-12] MEDS ORDERED: VANCOMYCIN 1,000 MG/NS 250 ML IV SCH ×2 (16:00)
--- NOTE | 2016-11-12 17:16 | ECHRPT ---
Indication: sepsis endocarditis CONCLUSIONS Normal left ventricular size and wall thickness. The left ventricular systolic function is normal with an estimated ejection fraction in the range of 60-65%. Left ventricular diastolic function parameters are normal. There is trace tricuspid valve regurgitation. BP: 95 / 50 HR: 69 Rhythm: MEASUREMENTS (Male / Female) Normal Values Technical Quality: 2D ECHO LV Diastolic Diameter PLAX 4.0 cm 4.2 - 5.9 / 3.9 - 5.3 cm LV Systolic Diameter PLAX 2.9 cm IVS Diastolic Thickness 0.9 cm 0.6 - 1.0 / 0.6 - 0.9 cm LVPW Diastolic Thickness 0.9 cm 0.6 - 1.0 / 0.6 - 0.9 cm LV Relative Wall Thickness 0.5 RV Internal Dim ED PLAX 2.3 cm M-MODE Aortic Root Diameter MM 2.8 cm LA Systolic Diameter MM 3.5 cm LA Ao Ratio MM 1.3 AV Cusp Separation MM 1.6 cm DOPPLER Mitral E Point Velocity 124.0 cm/s Mitral A Point Velocity 80.1 cm/s Mitral E to A Ratio 1.5 TR Peak Velocity 194.0 cm/s TR Peak Gradient 15.1 mmHg FINDINGS Left Ventricle Normal left ventricular size and wall thickness. The left ventricular systolic function is normal with an estimated ejection fraction in the range of 60-65%. Left ventricular diastolic function parameters are normal. Right Ventricle Normal right ventricular size and systolic function. Left Atrium The left atrial size is normal. Right Atrium The right atrial size is normal. Atrial Septum Normal atrial septal thickness without atrial level shunting by limited color doppler interrogation. Aorta The aortic root and proximal ascending aorta are normal in size on limited imaging. Mitral Valve Structurally normal mitral valve. No mitral valve stenosis or regurgitation. Aortic Valve Trileaflet aortic valve. No aortic valve stenosis or regurgitation. Tricuspid Valve Structurally normal tricuspid valve. There is trace tricuspid valve regurgitation. Pulmonary Valve The pulmonary valve is not well visualized. Vessels The inferior vena cava is normal in size. Pericardium No pericardial effusion. Ajit Casiano MD, FACC Edited by: [employer] Registered Nurse Fetal (Electronically Signed) Final Date:12 November 2016 17:16 Amended: 13 November 2016 13:45 MTDD
[2016-11-13] MEDS ORDERED: PHARMACY ORDERED LAB ONE (15:45)
== END 2016-11-12 11:18 | disposition home or self-care (01) | DRG 603 ==
LOC: NEPC 11:19 → NEDA 15:01 → N04B 18:15
PROVIDERS: ADMIT Hospitalist; ATTEND Hospitalist
PROC: 0H98XZZ Drainage of Buttock Skin, External Approach (ICD-10-PCS; principal; 2016-11-10)
DX: L02.31 Cutaneous abscess of buttock (principal); L02.512 Cutaneous abscess of left hand; B95.61 Methicillin susceptible Staphylococcus aureus infection as the cause of diseases classified elsewhere; G89.29 Other chronic pain; M54.9 Dorsalgia, unspecified; F41.9 Anxiety disorder, unspecified; F17.210 Nicotine dependence, cigarettes, uncomplicated; F19.10 Other psychoactive substance abuse, uncomplicated; E87.6 Hypokalemia
CPT/HCPCS: 10061; 73130; 80053; 80202; 81001; 83605; 85007; 85025; 85027; 86403; 87040; 87070; 87086; 87147; 87186; 87205; 93306; 96365; 96375; J2270; J3370; J7030; J7050